=== PATIENT | male | born 1965 | race African-American/Black ===

== ENCOUNTER 2022-04-09 11:48 | Emergency (ER) | payer SELFPAY ==
[~2022-04-09] VITALS: Ht 175.3 cm; Wt 105.0 kg
[2022-04-09 12:45] VITALS: BP 152/89
[2022-04-09] MEDS ORDERED: TETRACAINE 0.5% OPHTH DROPS 4ML RIGHTEYE ONE (13:30)
[2022-04-09] MEDS ORDERED: BALANCED SALT IRRIG SOLN 15ML IR ONE (13:30)
[2022-04-09] MEDS ORDERED: FLUORESCEIN SODIUM 1MG/STRIP RIGHTEYE ONE (13:30)
[2022-04-09] MEDS ORDERED: SULF1TAB48 PO (14:40)
[2022-04-09] MEDS ORDERED: AMOX1TAB16 PO (14:40)
[2022-04-09] MEDS ORDERED: NAPR-681 PO (14:40)
== END 2022-04-09 14:46 | disposition home or self-care (01) ==
LOC: ER 12:03
DX: H00.033 Abscess of eyelid right eye, unspecified eyelid (principal); L03.213 Periorbital cellulitis
CPT/HCPCS: 99283

== ENCOUNTER 2023-06-11 12:12 | Emergency (ER) | payer MEDICAID ==
[~2023-06-11] VITALS: Ht 162.6 cm; Wt 67.0 kg
[~2023-06-11 12:12] MED LIST: AMOX1TAB16 PO; NAPR-681 PO; SULF1TAB48 PO
[2023-06-11 12:17] VITALS: O2SAT 99
[2023-06-11] MEDS ORDERED: ASPIRIN 325MG EC TABLET PO ONE (12:30)
[2023-06-11 12:49] LABS: BASOPHILS % 0.8 % (0.0-2.0); EOSINOPHILS % 1.2 % (0.0-5.0); HEMATOCRIT. 43.5 % (42.0-52.0); HEMOGLOBIN. 14.7 g/dL (14.0-18.0); LYMPHOCYTES % 33.8 % (20.0-50.0); MEAN CORPUSCULAR HEMOGLOBIN 31.6 pg (28.0-32.0); MEAN CORPUSCULAR HGB CONC 33.9 g/dL (31.0-37.0); MEAN CORPUSCULAR VOLUME 93.3 fL (80.0-94.0); MONOCYTES % 10.3 % (2.0-8.0); NEUTROPHILS % 53.9 % (40.0-76.0); PLATELET 182 x1000/uL (130-400); RED BLOOD CELL COUNT 4.67 mill/uL (4.7-6.1); RED CELL DISTRIBUTION WIDTH 13.6 % (11.6-14.6); WHITE BLOOD COUNT 4.8 x1000/uL (4.5-11.0)
[2023-06-11 12:58] LABS: CHLORIDE 105 mEq/L (98-107); INDEX HEMOLYSI 1 (1-3); INDEX ICTERIC 1 (1-4); INDEX LIPEMIC 1 (1-3); POTASSIUM 3.6 mEq/L (3.5-5.1); SODIUM 137 mEq/L (136-145)
[2023-06-11 13:00] LABS: PROTHROMBIN TIME 10.5 sec (9.6-11.0)
[2023-06-11 13:06] LABS: ALANINE AMINOTRANSFERASE 42 IU/L (13-61); ALBUMIN 3.7 g/dL (3.4-5.0); ASPARTATE AMINOTRANSFERASE 27 IU/L (15-37); BILIRUBIN TOTAL 0.4 mg/dL (0.1-1.0); CALCIUM 9.1 mg/dL (8.5-10.1); CARBON DIOXIDE 22 mEq/L (21-32); CREATININE 0.8 mg/dL (0.6-1.3); ETHANOL BLOOD < 10 mg/dL (-10); PROTEIN TOTAL 7.1 g/dL (6.0-8.3); UREA NITROGEN BLOOD 11 mg/dL (7-21)
[2023-06-11 13:22] LABS: CLARITY URINE CLEAR (CLEAR); COLOR URINE YELLOW (YELLOW); GLUCOSE URINE NEGATIVE (NEGATIVE); KETONES URINE NEGATIVE (NEGATIVE); LEUKOCYTE ESTERASE URINE NEGATIVE (NEGATIVE); NITRITE URINE NEGATIVE (NEGATIVE); OCCULT BLOOD URINE NEGATIVE (NEGATIVE); PROTEIN URINE TRACE (NEGATIVE); SPECIFIC GRAVITY URINE 1.088 (1.005-1.030); UROBILINOGEN URINE 0.2 E.U./dL (0.2-1.0)
[2023-06-11 13:45] LABS: BACTERIA URINE NONE SEEN; RBC URINE 0-2 /hpf (0-2); SQUAMOUS EPITHELIAL CELL URINE NONE SEEN /lpf (RARE/1+); WBC URINE 0-2 /hpf (0-2)
[2023-06-11 13:48] LABS: *AMPHETAMINES SCREEN URINE NEGATIVE (NEGATIVE); *BARBITURATES SCREEN URINE NEGATIVE (NEGATIVE); *BENZODIAZEPINES SCREEN URINE NEGATIVE (NEGATIVE); *COCAINE SCREEN URINE NEGATIVE (NEGATIVE); CANNABINOID URINE SCREEN PRESUMTIVE POSITIVE (NEGATIVE); ECSTASY MDMA SCREEN URINE NEGATIVE (NEGATIVE); METHADONE URINE SCREEN NEGATIVE (NEGATIVE); OPIATES URINE SCREEN NEGATIVE (NEGATIVE); PHENCYCLIDINE URINE SCREEN NEGATIVE (NEGATIVE)
[2023-06-11 13:51] LABS: GLUCOSE 233 mg/dL (70-105)
[2023-06-11 17:07] VITALS: BP 162/95; PULSE 93; RESP 20; TEMP 98.3
== END 2023-06-11 18:15 | disposition left against medical advice (07) ==
LOC: ER 13:43 → CANBEDREQ 18:11 → ER 18:15
DX: I67.82 Cerebral ischemia (principal); E11.9 Type 2 diabetes mellitus without complications; I10 Essential (primary) hypertension
CPT/HCPCS: 36415; 70496; 70498; 71045; 80053; 80305; 80320; 81003; 82962; 85025; 93005; 99285; 99291; G0480

== ENCOUNTER 2025-01-09 11:19 | Emergency (ER) | payer MEDICAID, OTHER ==
[~2025-01-09] VITALS: Ht 167.6 cm; Wt 73.0 kg
[2025-01-09 11:24] VITALS: O2SAT 98
[2025-01-09 12:04] LABS: BASOPHILS % 1.6 % (0.0-2.0); EOSINOPHILS % 1.5 % (0.0-5.0); HEMATOCRIT. 53.4 % (42.0-52.0); HEMOGLOBIN. 17.5 g/dL (14.0-18.0); LYMPHOCYTES % 57.1 % (20.0-50.0); MEAN CORPUSCULAR HEMOGLOBIN 31.7 pg (28.0-32.0); MEAN CORPUSCULAR HGB CONC 32.8 g/dL (31.0-37.0); MEAN CORPUSCULAR VOLUME 96.6 fL (80.0-94.0); MONOCYTES % 4.9 % (2.0-8.0); NEUTROPHILS % 34.9 % (40.0-76.0); RED BLOOD CELL COUNT 5.53 mill/uL (4.7-6.1); RED CELL DISTRIBUTION WIDTH 16.4 % (11.6-14.6); WHITE BLOOD COUNT 4.9 x1000/uL (4.5-11.0)
[2025-01-09 12:12] LABS: DIFFERENTIAL COMMENT 1
[2025-01-09 12:30] LABS: CHLORIDE 106 mEq/L (98-107); POTASSIUM 4.2 mEq/L (3.5-5.1); SODIUM 140 mEq/L (136-145)
[2025-01-09 12:31] LABS: CALCIUM 9.7 mg/dL (8.7-10.4); CARBON DIOXIDE 17 mEq/L (21-32)
[2025-01-09 12:36] LABS: CREATININE 0.7 mg/dL (0.6-1.3); ETHANOL BLOOD 202 mg/dL (<10); GLUCOSE 129 mg/dL (70-105); UREA NITROGEN BLOOD 8 mg/dL (9-23)
[2025-01-09 12:37] LABS: TROPONIN I HIGH SENSITIVITY 8 ng/L (3.0-53)
[2025-01-09 14:25] LABS: PLATELET 259 x1000/uL (130-400)
[2025-01-09 14:26] LABS: MEAN PLATELET VOLUME 9.3 fl (7.4-10.4)
[2025-01-09 14:29] VITALS: BP 169/89; PULSE 99; RESP 18; TEMP 37.1; O2SAT 96
[2025-01-09 15:40] LABS: *AMPHETAMINES SCREEN URINE NEGATIVE (NEGATIVE); *BARBITURATES SCREEN URINE NEGATIVE (NEGATIVE); *BENZODIAZEPINES SCREEN URINE NEGATIVE (NEGATIVE); *COCAINE SCREEN URINE NEGATIVE (NEGATIVE); METHADONE URINE SCREEN NEGATIVE (NEGATIVE); OPIATES URINE SCREEN NEGATIVE (NEGATIVE)
[2025-01-09 15:41] LABS: CANNABINOID URINE SCREEN PRESUMPTIVE POSITIVE (NEGATIVE); ECSTASY MDMA SCREEN URINE NEGATIVE (NEGATIVE); PHENCYCLIDINE URINE SCREEN NEGATIVE (NEGATIVE)
== END 2025-01-09 15:00 | disposition short-term general hospital (02) ==
LOC: ER 11:19
DX: R42 Dizziness and giddiness (principal); E11.9 Type 2 diabetes mellitus without complications; I10 Essential (primary) hypertension
CPT/HCPCS: 80305; 80048; 80320; 83880; 85025; 84484; 36415; 71045; 70450; 70486; 93005; 99285; Z7610; A4606; G0480